=== PATIENT | male | born 1970 | race Caucasian/White ===

== ENCOUNTER → 2017-06-16 | Outpatient (CLI) | payer OTHER ==
[~2017-06-16] MED LIST: ALBUTEROL17 GM INH; FIBERCON625 MG PO; LOMOTIL WHITE2.5 MG PO; LORTAB 5/500 TA1 TA1 PO; PHENERGAN25 MG PO; SINGULAIR PO
--- NOTE | ~2017-06-16 | US85 ---
[facility] A Service of [facility] RADIOLOGY TEXT RESULTS PATIENT: SUGAR VELEZ LOCATION: CNIV : 72 UNIT #: [id number] AGE: [address]: Ho Licona MD SEX: M ORDER DR: [id number] [facility] [address]. [place], [place] [address] [id number] O MR#: [id number] #: [id number] NAME: SUGAR VELEZ : 1970 SEX: M STUDY DATE/TIME: 06/16/2017 16:16 UNIT: CNIV ROOM: STUDY DESCRIPTION: [facility]il or [facility] Attending Physician: Ho Licona M.D. Referring Physician: Ho Licona M.D. Ordering Physician: Ho Licona M.D. Primary Care Physician: Ho Licona M.D. MEDICAL IMAGING REPORT This report is preliminary unless electronic signature is present EXAM Left lower extremity venous duplex, 06/16/2017. HISTORY Left lower extremity pain in mid thigh extending to left mid calf for 2 weeks with left lower extremity edema. Evaluate for deep vein thrombosis. TECHNIQUE Venous ultrasound examination of the left lower extremity was performed using grayscale, spectral Doppler and color flow Doppler imaging. FINDINGS The examination is negative. There is no evidence of left lower extremity deep venous thrombus from the groin to the lower calf. Visualized greater saphenous vein is also patent. IMPRESSION Negative examination. No evidence of left lower extremity deep venous thrombosis. Dictated by... Tyler Lopez M.D. THIS IS AN ELECTRONICALLY VERIFIED REPORT Tyler Lopez M.D. at 06/17/2017 7:25 AM ALINA/archana TD: 06/17/2017 02:51 JOB #: [id number] MEDICAL IMAGING REPORT [facility] A Service of [facility] RADIOLOGY TEXT RESULTS PATIENT: SUGAR VELEZ LOCATION: CNIV : 72 UNIT #: [id number] AGE: [address]: Ho Licona MD SEX: M ORDER DR: Page 1 of 1 COPY
== END | disposition home or self-care (01) ==
LOC: CNIV 15:43
DX: M79.605 Pain in left leg (principal)
CPT/HCPCS: 93971